=== PATIENT | male | born 1985 | race Caucasian/White ===

== ENCOUNTER 2016-08-27 15:56 | Emergency (ER) | payer MEDICAID ==
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
== END 2016-08-27 17:17 | disposition home or self-care (01) ==
LOC: ER 15:56
PROC: 2W38X1Z Immobilization of Right Upper Extremity using Splint (ICD-10-PCS; principal; 2016-08-27)
DX: S60.221A Contusion of right hand, initial encounter (principal); Y04.2XXA Assault by strike against or bumped into by another person, initial encounter